=== PATIENT | female | born 1990 | race Caucasian/White ===

== ENCOUNTER 2018-02-10 17:31 | Observation (INO) | payer OTHER ==
[2018-02-10] MEDS ORDERED: OXYTOCIN 10 UNIT/ML ML IV ONE (17:49)
[2018-02-10] MEDS ORDERED: Ringers Lactate 1,000 ML IV ONE ×2 (17:49→17:55)
[2018-02-10] MEDS ORDERED: METHYLERGONOVINE 0.2MG/ML AMP IM ONE (17:51)
--- NOTE | 2018-02-10 18:13 | ER ---
Nurse's Notes [facility] Name: Manisha Bui Age: 27 yrs Sex: Female : 1990 Arrival Date: 02/10/2018 Time: 17:34 Bed 6 Private MD: Diagnosis: Sycnope, Bleeding, Retained Products of Conception Presentation: 02/10 17:36 Presenting complaint: Patient states: I gave at home (full term) today at 1219, la1 was uncomplicated but after it was over I had two near syncopal events. EMS reports pt has + orthostatics and BP was 80/40 on scene. 1L NS given en route. Transition of care: patient was not received from another setting of care. Onset of symptoms was February 10, 2018. Initial Sepsis Screen: Does the patient meet any 2 criteria? No. Patient's initial sepsis screen is negative. Does the patient have a suspected source of infection? No. Patient's initial sepsis screen is negative. Care prior to arrival: IV initiated. 20 GA, in the left antecubital area. 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 - Social history:: Smoking status: Patient/guardian denies using tobacco. Screenin:38 Abuse screen: Denies threats or abuse. Nutritional screening: No deficits noted. la1 Tuberculosis screening: No symptoms or risk factors identified. Fall Risk None identified. Assessment: 17:38 General: Appears uncomfortable, Behavior is calm, cooperative. Pain: Complains of pain la1 in pelvis. Neuro: Level of Consciousness is awake, alert, obeys commands, Oriented to person, place, time, situation. Cardiovascular: Heart tones S1 S2 present Capillary refill < 3 seconds Patient's skin is warm and dry. Respiratory: Airway is patent Respiratory effort is even, unlabored, Respiratory pattern is regular, symmetrical, Breath sounds are clear bilaterally. GI: Abdomen is round non-distended, Bowel sounds present X 4 quads. Abd is soft and non tender X 4 quads. : Reports vaginal bleeding that is. Derm: Skin is dry, Skin is pale, Skin temperature is warm. Vital Signs: 17:37 BP 122 / 73; Pulse 88; Resp 19; Temp 98.9(O); Pulse Ox 100% on R/A; la1 18:50 BP 120 / 74; Pulse 86; Resp 19; Pulse Ox 100% on R/A; la1 ED Course: 17:34 Patient arrived in ED. iw 17:35 Jeff Coleman, RN is Primary Nurse. la1 17:37 Triage completed. la1 17:38 Arm band placed on right wrist. la1 17:38 Placed in gown. Bed in low position. Call light in reach. cutter operator helper on. Pulse ox la1 on. NIBP on. 17:38 No provider procedures requiring assistance completed. Inserted saline lock: 20 gauge la1 in right antecubital area, using aseptic technique. Blood collected. 17:43 Ismael Murphy MD is Attending Physician. kdr 18:12 Gurvinder Kramer MD is Hospitalizing Provider. kdr 18:50 Patient admitted, IV remains in place. la1 Administered Medications: 17:50 Drug: Pitocin 20 units Route: IV; Rate: calculated rate; Site: left wrist; ae1 18:49 Follow up: IV Status: Infusion continued upon admission la1 17:51 Drug: METHERgine 0.2 mg {Note: Administred by Shivani Aguilar RN.} Route: IM; Site: right ae1 vastus lateralis; 18:49 Follow up: Response: No adverse reaction la1 18:03 Drug: Ringers - Lactated Ringers Solution 1000 ml Route: IV; Rate: bolus; Site: right la1 antecubital; 18:49 Follow up: IV Status: Infusion continued upon admission la1 Outcome: 18:13 Decision to Hospitalize by Provider. kdr 18:49 Admitted to L \T\ D, accompanied by nurse, via stretcher, room 277, with chart. la1 18:49 Condition: stable 18:49 Instructed on the need for admit. 18:50 Patient left the ED. la1 Signatures: Ismael Murphy MD MD kdr Carli Bailon RN RN iw Jeff Coleman RN RN la1 Ovidio, Oni, RN RN ae1
--- NOTE | 2018-02-10 18:13 | EDPHYS ---
Physician Documentation [facility] Name: Manisha Bui Age: 27 yrs Sex: Female : 1990 Arrival Date: 02/10/2018 Time: 17:34 Bed 6 Private MD: ED Physician Ismael Murphy HPI: 02/10 17:55 This 27 yrs old Female presents to ER via EMS with complaints of vaginal kdr bleeding and syncope . 17:55 The patient presents with vaginal bleeding that is Syncope x 2. Onset: The kdr symptoms/episode began/occurred just prior to arrival. Modifying factors: The symptoms are alleviated by laying down, the symptoms are aggravated by Standing up. Associated signs and symptoms: Pertinent positives: syncope When the patient stands up, she become hypotensive and passes out. Severity of symptoms: At their worst the symptoms were moderate, in the emergency department the symptoms are unchanged. The patient has not experienced similar symptoms in the past. The patient has not recently seen a physician, The patient initially saw Dr. Goldsmith but then completed her and delivery with a pin sorter and bagger.. EMS reports that they had been called to the home earlier in the day to evaluate the patient due to being light headed and dizzy. They did not initially transport but when the patient had a second syncopal episode, EMS was called again. 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 - Social history:: Smoking status: Patient/guardian denies using tobacco. ROS: 17:55 Constitutional: Negative for fever, chills, and weight loss, Eyes: Negative for injury, kdr pain, redness, and discharge, Neck: Negative for injury, pain, and swelling, Cardiovascular: Negative for chest pain, palpitations, and edema, Respiratory: Negative for shortness of breath, cough, wheezing, and pleuritic chest pain, Abdomen/GI: Negative for abdominal pain, nausea, vomiting, diarrhea, and constipation, Back: Negative for injury and pain, MS/Extremity: Negative for injury and deformity, Skin: Negative for injury, rash, and discoloration, Psych: Negative for depression, anxiety, suicide ideation, homicidal ideation, and hallucinations, Allergy/Immunology: Negative for hives, rash, and allergies, Endocrine: Negative for neck swelling, polydipsia, polyuria, polyphagia, and marked weight changes, Hematologic/Lymphatic: Negative for swollen nodes, abnormal bleeding, and unusual bruising. 17:55 : Positive for vaginal bleeding, Negative for difficulty urinating, bladder incontinence, vaginal itching, menstrual abnormality. 17:55 Neuro: Positive for dizziness, loss of consciousness, syncope, near syncope, weakness, Negative for altered mental status, headache, seizure activity, speech changes, tremor. Exam: 17:55 Constitutional: This is a well developed, well nourished patient who is awake, alert, kdr and in no acute distress. Head/Face: Normocephalic, atraumatic. Eyes: Pupils equal round and reactive to light, extra-ocular motions intact. Lids and lashes normal. Conjunctiva and sclera are non-icteric and not injected. Cornea within normal limits. Periorbital areas with no swelling, redness, or edema. Neck: Trachea midline, no thyromegaly or masses palpated, and no cervical lymphadenopathy. Supple, full range of motion without nuchal rigidity, or vertebral point tenderness. No Meningismus. Chest/axilla: Normal chest wall appearance and motion. Nontender with no deformity. No lesions are appreciated. Cardiovascular: Regular rate and rhythm with a normal S1 and S2. No gallops, murmurs, or rubs. Normal PMI, no JVD. No pulse deficits. Respiratory: Lungs have equal breath sounds bilaterally, clear to auscultation and percussion. No rales, rhonchi or wheezes noted. No increased work of breathing, no retractions or nasal flaring. Abdomen/GI: Soft, non-tender, with normal bowel sounds. No distension or tympany. No guarding or rebound. No evidence of tenderness throughout. Back: No spinal tenderness. No costovertebral tenderness. Full range of motion. Skin: Warm, dry with normal turgor. Normal color with no rashes, no lesions, and no evidence of cellulitis. MS/ Extremity: Pulses equal, no cyanosis. Neurovascular intact. Full, normal range of motion. Neuro: Awake and alert, GCS 15, oriented to person, place, time, and situation. Cranial nerves II-XII grossly intact. Motor strength 5/5 in all extremities. Sensory grossly intact. Cerebellar exam normal. Normal gait. Psych: Awake, alert, with orientation to person, place and time. Behavior, mood, and affect are within normal limits. 17:55 : Pelvic Exam: The patient presents obviously post from the earlier delivery today. The is a pad in place that had BRB on it and there is mild bleeding. Vital Signs: 17:37 BP 122 / 73; Pulse 88; Resp 19; Temp 98.9(O); Pulse Ox 100% on R/A; la1 18:50 BP 120 / 74; Pulse 86; Resp 19; Pulse Ox 100% on R/A; la1 Procedures: 18:04 Performed speculum exam, 3rd degree perineal tear, labia minora and majora with snw significant edema, fundal massage begun, pt rec'ing 1st L NS per PIV, speculum exam shows moderate amount of bleeding from open cervix with placental retained tissue extruding from cervical os. Gentle traction with ring forceps applied, placental remnant removed, os appears edematous but healthy. Fundus firmed from intial exam. LR with 20 units pitocin up and infusing, methergine 0.2mg IM to right vastus lateralis. Pt states pain is significantly reduced. Ice pack placed to perineal area.. MDM: 18:13 Patient medically screened. kdr 18:18 Data reviewed: vital signs, nurses notes, lab test result(s). Counseling: I had a kdr detailed discussion with the patient and/or guardian regarding: the historical points, exam findings, and any diagnostic results supporting the discharge/admit diagnosis, lab results, radiology results, the need for further work-up and treatment in the hospital. 02/10 17:55 Order name: CBC with Diff kdr 02/10 17:55 Order name: Chem 7 kdr 02/10 17:55 Order name: Type And Screen kdr 02/10 18:10 Order name: US Transvaginal Ob snw Administered Medications: 17:50 Drug: Pitocin 20 units Route: IV; Rate: calculated rate; Site: left wrist; ae1 18:49 Follow up: IV Status: Infusion continued upon admission la1 17:51 Drug: METHERgine 0.2 mg {Note: Administred by Shivani Aguilar RN.} Route: IM; Site: right ae1 vastus lateralis; 18:49 Follow up: Response: No adverse reaction la1 18:03 Drug: Ringers - Lactated Ringers Solution 1000 ml Route: IV; Rate: bolus; Site: right la1 antecubital; 18:49 Follow up: IV Status: Infusion continued upon admission la1 Disposition: 18:11 Co-signature as Attending Physician, Ismael Murphy MD I agree with the assessment and kdr plan of care. Disposition: 02/10/18 18:13 Hospitalization ordered by Gurvinder Kramer for Observation. Preliminary diagnosis is Sycnope, Bleeding, Retained Products of Conception. - [facility]. - Status is Observation. la1 - Condition is Fair. - Problem is new. - Symptoms have improved. UTI on Admission? No Signatures: Dispatcher [employer] EDRI Ismael Murphy MD MD kdr Cece Salazar, WELD INSPECTOR-C WELD INSPECTOR-Csnw Jeff Coleman RN RN la1 Oni Nolan RN RN ae1 Kellen Barrera
[2018-02-10 18:15] LABS: Absolute Lymphocytes (CBC) 1.1 K/uL (0.7-4.9); Absolute Monocytes 0.9 K/uL (0.1-1.3); Absolute Neutrophil 17.6 K/uL (1.8-8.0); Basophils % 0.8 % (0-1.3); Hematocrit 23.9 % (36.0-45.0); Lymphocytes % 5.6 % (15.3-44.8); MCH 31.9 pg (27.0-35.0); MCV 93.4 fL (80-100); Monocytes % 4.5 % (3.3-12.3); RBC Red Blood Cell Count 2.56 M/uL (3.86-4.86)
[2018-02-10] MEDS ORDERED: FENTANYL CITR 100 MCG/2 ML IV PRN (18:16)
[2018-02-10] MEDS ORDERED: ACETAMINOPHEN 500 MG TAB PO PRN (18:16)
[2018-02-10] MEDS ORDERED: ONDANSETRON 4 MG/2 ML VIAL IV PRN (18:16)
[2018-02-10 18:22] LABS: BUN Blood Urea Nitrogen 8 mg/dL (6-20); Glucose Level 119 mg/dL (65-120)
[2018-02-10 18:28] LABS: Bicarbonate 18 mEq/L (21-31); Potassium 3.3 mEq/L (3.6-5.0); Sodium Level 120 mEq/L (135-145)
[2018-02-10] MEDS ORDERED: LIDOCAINE 1% 20 ML MDV ONE (18:45)
[2018-02-10] MEDS ORDERED: BUTORPHANOL 1 MG/ML INJ ONE (18:45)
[2018-02-10] MEDS ORDERED: PROMETHAZINE 25 MG/ML VIAL ONE (18:50)
[2018-02-10 18:54] VITALS: O2SAT 100
[2018-02-10] MEDS ORDERED: NA CHLORIDE 0.9% 1,000 ML ONE (18:58)
[2018-02-10] MEDS ORDERED: D5 0.45 NS 1,000 ML IV SCH (19:00)
[2018-02-10] MEDS ORDERED: CEFAZOLIN/NS 1gm 1 GM/50 ML BAG IVPB ONE (19:02)
[2018-02-10] MEDS ORDERED: CEFAZOLIN SODIUM 1 GM/VIAL ONE (19:03)
[2018-02-10] MEDS ORDERED: CEFAZOLIN/SWI 1gm 1 GM/10 ML SYR ONE (19:04)
[2018-02-10] MEDS ORDERED: CARBOPROST TROME 250 MCG/ML IM PRN (19:40)
[2018-02-10] MEDS ORDERED: ONDANSETRON 4 MG (ODT) TAB PO PRN (19:40)
[2018-02-10] MEDS ORDERED: METHYLERGONOVINE 0.2MG/ML AMP IM PRN (19:40)
[2018-02-10] MEDS ORDERED: METHYLERGONOVINE 0.2 MG TAB PO PRN (19:40)
[2018-02-10] MEDS ORDERED: Oxycodone HCl/Acetaminophen 1 TAB TAB PO PRN (19:40)
[2018-02-10] MEDS ORDERED: IBUPROFEN 200 MG TAB PO PRN (19:40)
--- NOTE | 2018-02-10 19:43 | P.BOP ---
Preoperative diagnosis: Perineal lacerations Postoperative diagnosis: same Primary procedure: Repair of lacerations, Right periurethral, posterior vaginal Estimated blood loss: Less than 10ml during repair Anesthesia: Local Complications: None Drain(s): Urinary catheter Transferred to: Other (277) Condition: Fair
[2018-02-10] MEDS ORDERED: OXYTOCIN/LR 20 UNITS/1,000 ML BAG IV SCH (20:00)
[2018-02-10 20:36] LABS: Blood Morphology Comment NOT SEEN (NOT SEEN); Platelet Estimate ADEQ; Toxic Granulation 1+
[2018-02-10] MEDS ORDERED: BUTORPHANOL 1 MG/ML INJ IV ONE (20:50)
[2018-02-10] MEDS ORDERED: PROMETHAZINE 25 MG/ML VIAL IV ONE (20:50)
[2018-02-10 20:51] VITALS: BMI 29.0
--- NOTE | 2018-02-11 00:49 | PREOPHP ---
Date of Admission: 02/10/2018 Preoperative Diagnoses: Perineal laceration, severe anemia. Procedure Performed: Repair of lacerations. Postoperative Diagnoses: Perineal laceration, severe anemia. Description Of Procedure: The patient was prepped and draped in the usual fashion as if had just del ivered vaginally in our labor and delivery unit after given 1 mg Stadol, 12.5 mg of Phenergan IV, and local infiltration. Right periurethral laceration was repaired with simple sutures of 3-0 Vicryl. The posterior vaginal laceration and perineal laceration were repaired as if repairing the usual epis iotomy with 3-0 Vicryl suture. Large flap of hymenal ring posteriorly was excised to effect more imp roved repair. The patient tolerated procedures adequately. Estimated total blood loss at the time o f procedure was only 10 cc. Goldberg catheter was placed at the end of the procedure with close to a li ter of urine being expelled because of extremely poor visualization with it at the same time. Little bleeding was noted from the cervical os. We will defer curettage of the endometrium to a later poin t to be done under general anesthesia in the OR if bleeding is a problem. TAMIKO/ISAAC Voice ID: [id number]
--- NOTE | 2018-02-11 00:49 | PREOPHP ---
Date of Admission: 02/10/2018 History Of Present Illness: Ms. Bui is 27-year-old female, now 3, para 1-0-2-1, who is status post vaginal delivery outside the hospital with a security technician approximately 12 p.m. today. She was brought to the hospital after a couple of syncopal episodes and noted to be severely anemic with low blood pressure. The security technician reports spontaneous controlled vaginal delivery with no unusua l bleeding afterwards. Past Medical History: Includes prior ectopic with exploratory laparotomy, right salpingect jorge, and prior spontaneous AB. She has no other significant hospitalizations, accidents, illnesses, injuries, or surgeries. Medications: She is on no medications other than vitamins. Allergies: SHE HAS NO KNOWN ALLERGIES. Social History: She does not smoke. Family History: Noncontributory. Review of Systems: She reports no recent cough, cold, fever, or chills. No recent nausea or vomiting. She denies any b reast lumps. She denies any urine symptoms or bowel problems. Physical Examination: General: Reveals extremely pale female. Neck: Supple without adenopathy or thyromegaly. Lungs: Clear. Cardiac: Regular rate and rhythm, without murmurs. Pulse rate approximately 88. Lungs: Clear. Abdomen: Nontender. Uterus is almost at the umbilicus. Pelvic: She has a second-degree perineal laceration that extends care home up the vagina. A large rig ht periurethral laceration. There was not a great deal of active bleeding at this point. Impression: 1.Status post vaginal delivery with perineal lacerations. 2.Syncope, probably secondary to acute blood loss. Plan: The patient will be admitted for 23-hour stay, repair of lacerations, and possible blood trans fusion. MPG/MODL Voice ID: [id number]
[2018-02-11 04:15] LABS: Hematocrit 27.7 % (36.0-45.0)
[2018-02-11 08:01] LABS: Absolute Lymphocytes (CBC) 1.8 K/uL (0.7-4.9); Absolute Monocytes 0.7 K/uL (0.1-1.3); Absolute Neutrophil 10.8 K/uL (1.8-8.0); Basophils % 0.4 % (0-1.3); Eosinophils % 0.2 % (0-4.4); Lymphocytes % 13.8 % (15.3-44.8); MCH 30.7 pg (27.0-35.0); MCV 91.6 fL (80-100); MPV 9.5 fL (7.6-11.3); Monocytes % 5.2 % (3.3-12.3); RBC Red Blood Cell Count 3.07 M/uL (3.86-4.86)
--- NOTE | 2018-02-11 08:02 | P.PN ---
Date of Service: 02/11/18 S-No real complaints except soreness O-07/13 post transfusion h/h, abdomen non-tender, uterus well contracted A-Improved P-D?C Goldberg, ambulate, check cbc wbc's, probably home at noon if doing well.
[2018-02-11 12:46] VITALS: BP 140/80; TEMP 97.2
== END 2018-02-11 13:00 | disposition home or self-care (01) ==
LOC: ER 17:31 → ERHOLD 18:14 → 2ND-WC 18:27
PROVIDERS: ADMIT Specialist; ATTEND Specialist
PROC: 30233N1 Transfusion of Nonautologous Red Blood Cells into Peripheral Vein, Percutaneous Approach (ICD-10-PCS; principal; 2018-02-10)
PROC: 0KQM0ZZ Repair Perineum Muscle, Open Approach (ICD-10-PCS; 2018-02-10)
DX: O90.81 Anemia of the puerperium (principal); D62 Acute posthemorrhagic anemia; O71.82 Other specified trauma to perineum and vulva; O70.0 First degree perineal laceration during delivery; Z3A.00 Weeks of gestation of pregnancy not specified; Z37.0 Single live birth
CPT/HCPCS: 36415; 80048; 85025; 86850; 86900; 86901; 96372; 99285; G0378; J0595; J0690; J2210; J2550; J2590; J7030; P9016

== ENCOUNTER 2019-10-18 21:25 | Emergency (ER) | payer OTHER ==
[2019-10-18] MEDS ORDERED: CEFTRIAXONE/SWI 1gm 1 GM/10 ML SYR ONE (22:27)
[2019-10-18] MEDS ORDERED: NA CHLORIDE 0.9% 1,000 ML ONE (22:27)
[2019-10-18 22:31] LABS: Urine Blood 3+ (NEG); Urine Glucose NEGATIVE (NEG); Urine Protein NEGATIVE (NEG)
[2019-10-18 23:04] LABS: Absolute Lymphocytes (CBC) 1.3 K/uL (0.7-4.9); Basophils % 0.3 % (0-1.3); Hematocrit 36.1 % (36.0-45.0); Lymphocytes % 13.3 % (15.3-44.8); MPV 8.4 fL (7.6-11.3)
[2019-10-18 23:14] LABS: ALT/SGPT 25 U/L (12-78); AST/SGOT 18 U/L (15-37); Albumin 3.8 g/dL (3.4-5.0); Alkaline Phosphatase 59 U/L (45-117); BUN Blood Urea Nitrogen 10 mg/dL (7-18); Bicarbonate 26 mmol/L (21-32); Bilirubin Total 0.2 mg/dL (0.2-1.0); Glucose Level 92 mg/dL (74-106); Potassium 3.6 mmol/L (3.5-5.1); Protein, Total 8.3 g/dL (6.4-8.2); Sodium Level 141 mmol/L (136-145)
--- NOTE | 2019-10-19 01:06 | ER ---
Nurse's Notes [facility] Name: Manisha Bui Age: 29 yrs Sex: Female : 1990 Arrival Date: 10/18/2019 Time: 21:26 Bed 7 Private MD: Diagnosis: Abnormal uterine and vaginal bleeding, unspecified;Urinary tract infection, site not specified Presentation: 10/18 22:00 Presenting complaint: Patient states: "I think I might have a ectopic . I am jd3 having similar symptoms as the last one I had 3 months ago with bleeding and cramping.". Transition of care: patient was not received from another setting of care. Onset of symptoms was October 18, 2019. Risk Assessment: Do you want to hurt yourself or someone else?. Initial Sepsis Screen: Does the patient meet any 2 criteria? No. Patient's initial sepsis screen is negative. Does the patient have a suspected source of infection? No. Patient's initial sepsis screen is negative. Note Tylenol at 1700. Care prior to arrival: None. 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 - Social history:: Smoking status: Patient/guardian denies using tobacco. - Ebola Screening: : Patient negative for fever greater than or equal to 101.5 degrees Fahrenheit, and additional compatible Ebola Virus Disease symptoms. - Family history:: not pertinent. Screenin:30 Abuse screen: Denies threats or abuse. Denies injuries from another. Nutritional aa1 screening: No deficits noted. Tuberculosis screening: No symptoms or risk factors identified. Fall Risk None identified. Assessment: 22:30 General: Appears in no apparent distress. comfortable, Behavior is calm, cooperative, aa1 appropriate for age. Pain: Complains of pain in suprapubic area Quality of pain is described as crampy, Pain began 1 day ago. Neuro: Level of Consciousness is awake, alert, obeys commands, Oriented to person, place, time, situation, Moves all extremities. Full function Gait is steady. Respiratory: Airway is patent Respiratory effort is even, unlabored, Respiratory pattern is regular, symmetrical. GI: No signs and/or symptoms were reported involving the gastrointestinal system. : Urine is clear, Reports cramping, vaginal bleeding that is light flow. EENT: No signs and/or symptoms were reported regarding the EENT system. Derm: Skin is intact, is healthy with good turgor, Skin is pink, warm \\T\\ dry. Musculoskeletal: Circulation, motion, and sensation intact. Capillary refill < 3 seconds. 23:37 Reassessment: Patient appears in no apparent distress at this time. Patient and/or aa1 family updated on plan of care and expected duration. Pain level reassessed. Patient is alert, oriented x 3, equal unlabored respirations, skin warm/dry/pink. Awaiting provider reassessment. 10/19 00:35 Reassessment: Patient appears in no apparent distress at this time. Patient and/or aa1 family updated on plan of care and expected duration. Pain level reassessed. Patient is alert, oriented x 3, equal unlabored respirations, skin warm/dry/pink. Awaiting provider reassessment. 01:03 Reassessment: Patient appears in no apparent distress at this time. Patient is alert, aa1 oriented x 3, equal unlabored respirations, skin warm/dry/pink. Discussed d/c \\T\\ f/u instructions with pt; denies questions or concerns at this time. Ambulatory to lobby with steady gait. Vital Signs: 10/18 22:03 BP 123 / 76; Pulse 86; Resp 17 S; Temp 99.3(O); Pulse Ox 100% on R/A; Weight 63.05 kg jd3 (R); Height 5 ft. 3 in. (160.02 cm) (R); Pain 12/24; 23:37 BP 110 / 72; Pulse 77; Resp 16; Pulse Ox 100% on R/A; aa1 10/19 00:35 BP 105 / 68; Pulse 86; Resp 16; Pulse Ox 100% on R/A; Pain 0/10; aa1 10/18 22:03 Body Mass Index 24.62 (63.05 kg, 160.02 cm) jd3 ED Course: 10/18 21:26 Patient arrived in ED. cl3 22:01 Triage completed. jd3 22:05 Arm band placed on. jd3 22:09 Chirag Soto MD is Attending Physician. arjun 22:21 Yee Rojas RN is Primary Nurse. aa1 22:25 Urine collected: clean catch specimen. aa1 22:30 Patient has correct armband on for positive identification. Placed in gown. Bed in low aa1 position. Call light in reach. Pulse ox on. NIBP on. Warm blanket given. 22:35 Initial lab(s) drawn, by me, sent to lab. Inserted saline lock: 20 gauge in right aa1 forearm, using aseptic technique. Blood collected. 10/19 00:49 Gurvinder Kramer MD is Referral Physician. arjun 01:03 No provider procedures requiring assistance completed. IV discontinued, intact, aa1 bleeding controlled, No redness/swelling at site. Pressure dressing applied. Administered Medications: 10/18 22:39 Drug: NS 0.9% 1000 ml Route: IV; Rate: 1 bolus; Site: right forearm; aa1 23:15 Follow up: IV Status: Completed infusion; IV Intake: 1000ml aa1 22:39 Drug: Rocephin 1 grams Route: IV; Rate: per protocol; Site: right forearm; aa1 22:44 Follow up: IV Status: Completed infusion; IV Intake: 10ml aa1 Intake: 22:44 IV: 10ml; Total: 10ml. aa1 23:15 IV: 1000ml; Total: 1010ml. aa1 Outcome: 10/19 00:49 Discharge ordered by . arjun 01:03 Discharged to home ambulatory, with significant other. aa1 01:03 Condition: good 01:03 Discharge instructions given to patient, significant other, Instructed on discharge instructions, follow up and referral plans. medication usage, Demonstrated understanding of instructions, follow-up care, medications, Prescriptions given X 2. 01:03 Patient left the ED. aa1 Signatures: Yee Rojas RN RN aa1 Charles, Chirag, MD MD arjun Franco, Matty, RN RN jd3 Erick, Charde cl3
--- NOTE | 2019-10-19 01:10 | EDPHYS ---
Physician Documentation [facility] Name: Manisha Bui Age: 29 yrs Sex: Female : 1990 Arrival Date: 10/18/2019 Time: 21:26 Bed 7 Private MD: LUCIE Physician Chirag Soto HPI: 10/18 22:24 This 29 yrs old Female presents to ER via Ambulatory with complaints of arjun Vaginal Bleeding. 22:24 The patient presents with pelvic pain, vaginal bleeding that is. Onset: The arujn symptoms/episode began/occurred 2 day(s) ago. Modifying factors: The symptoms are alleviated by nothing, the symptoms are aggravated by nothing. Severity of symptoms: At their worst the symptoms were mild, in the emergency department the symptoms are unchanged. The patient is sexually active. [employer]ATORY HEL[employer]: 22:03 LMP N/A - Irregular menses jd3 22:24 3, Full Term 1, Premature 0, 2, Living 1 arjun Historical: - Allergies: 22:02 No Known Allergies; jd3 - Home Meds: 22:02 levothyroxine 50 mcg oral tab 1 tab once daily [Active]; jd3 - PMHx: 22:02 Thyroid problem; jd3 - PSHx: 22:02 ectopic preg sx; right felopien tube; jd3 - Immunization history:: Adult Immunizations not up to date. - Social history:: Smoking status: Patient/guardian denies using tobacco. - Ebola Screening: : Patient negative for fever greater than or equal to 101.5 degrees Fahrenheit, and additional compatible Ebola Virus Disease symptoms. - Family history:: not pertinent. ROS: 22:24 Constitutional: Negative for fever, chills, and weight loss, Eyes: Negative for injury, arjun pain, redness, and discharge, ENT: Negative for injury, pain, and discharge, Neck: Negative for injury, pain, and swelling, Cardiovascular: Negative for chest pain, palpitations, and edema, Respiratory: Negative for shortness of breath, cough, wheezing, and pleuritic chest pain, Abdomen/GI: Negative for abdominal pain, nausea, vomiting, diarrhea, and constipation, Back: Negative for injury and pain, MS/Extremity: Negative for injury and deformity, Skin: Negative for injury, rash, and discoloration, Neuro: Negative for headache, weakness, numbness, tingling, and seizure, Psych: Negative for depression, anxiety, suicide ideation, homicidal ideation, and hallucinations, Allergy/Immunology: Negative for hives, rash, and allergies, Endocrine: Negative for neck swelling, polydipsia, polyuria, polyphagia, and marked weight changes, Hematologic/Lymphatic: Negative for swollen nodes, abnormal bleeding, and unusual bruising. 22:24 : Positive for pelvic pain, vaginal bleeding. Exam: 22:24 Constitutional: This is a well developed, well nourished patient who is awake, alert, arjun and in no acute distress. Head/Face: Normocephalic, atraumatic. Eyes: Pupils equal round and reactive to light, extra-ocular motions intact. Lids and lashes normal. Conjunctiva and sclera are non-icteric and not injected. Cornea within normal limits. Periorbital areas with no swelling, redness, or edema. ENT: Nares patent. No nasal discharge, no septal abnormalities noted. Tympanic membranes are normal and external auditory canals are clear. Oropharynx with no redness, swelling, or masses, exudates, or evidence of obstruction, uvula midline. Mucous membranes moist. Neck: Trachea midline, no thyromegaly or masses palpated, and no cervical lymphadenopathy. Supple, full range of motion without nuchal rigidity, or vertebral point tenderness. No Meningismus. Chest/axilla: Normal chest wall appearance and motion. Nontender with no deformity. No lesions are appreciated. Cardiovascular: Regular rate and rhythm with a normal S1 and S2. No gallops, murmurs, or rubs. Normal PMI, no JVD. No pulse deficits. Respiratory: Lungs have equal breath sounds bilaterally, clear to auscultation and percussion. No rales, rhonchi or wheezes noted. No increased work of breathing, no retractions or nasal flaring. Abdomen/GI: Soft, non-tender, with normal bowel sounds. No distension or tympany. No guarding or rebound. No evidence of tenderness throughout. Back: No spinal tenderness. No costovertebral tenderness. Full range of motion. Skin: Warm, dry with normal turgor. Normal color with no rashes, no lesions, and no evidence of cellulitis. MS/ Extremity: Pulses equal, no cyanosis. Neurovascular intact. Full, normal range of motion. Neuro: Awake and alert, GCS 15, oriented to person, place, time, and situation. Cranial nerves II-XII grossly intact. Motor strength 5/5 in all extremities. Sensory grossly intact. Cerebellar exam normal. Normal gait. Psych: Awake, alert, with orientation to person, place and time. Behavior, mood, and affect are within normal limits. Vital Signs: 22:03 BP 123 / 76; Pulse 86; Resp 17 S; Temp 99.3(O); Pulse Ox 100% on R/A; Weight 63.05 kg jd3 (R); Height 5 ft. 3 in. (160.02 cm) (R); Pain 3/10; 23:37 BP 110 / 72; Pulse 77; Resp 16; Pulse Ox 100% on R/A; aa 10/19 00:35 BP 105 / 68; Pulse 86; Resp 16; Pulse Ox 100% on R/A; Pain 0/10; [facility] 10/18 22:03 Body Mass Index 24.62 (63.05 kg, 160.02 cm) jd3 MDM: 10/18 22:09 Patient medically screened. [facility] 22:27 Data reviewed: vital signs, nurses notes, lab test result(s). [facility] 10/18 22:20 Order name: Urine Dipstick--Ancillary (enter results); Complete Time: 23:06 [facility] 10/18 22:20 Order name: Urine --Ancillary (enter results); Complete Time: 23:06 [facility] 10/18 22:22 Order name: CBC with Diff; Complete Time: 00:49 [facility] 10/18 22:22 Order name: Comprehensive Metabolic Panel; Complete Time: 00:49 [facility] 10/18 22:22 Order name: Urine Culture [facility] 10/18 22:22 Order name: Test, Serum; Complete Time: 00:49 [facility] 10/18 22:22 Order name: Urine Dipstick-Ancillary (obtain specimen); Complete Time: 22:22 [facility] 10/18 22:22 Order name: Urine Test (obtain specimen); Complete Time: 22:22 [facility] Administered Medications: 22:39 Drug: NS 0.9% 1000 ml Route: IV; Rate: 1 bolus; Site: right forearm; aa 23:15 Follow up: IV Status: Completed infusion; IV Intake: 1000ml [facility] 22:39 Drug: Rocephin 1 grams Route: IV; Rate: per protocol; Site: right forearm; aa1 22:44 Follow up: IV Status: Completed infusion; IV Intake: 10ml aa1 Disposition: 10/19/19 00:49 Discharged to Home. Impression: Abnormal uterine and vaginal bleeding, unspecified, Urinary tract infection, site not specified. - Condition is Stable. - Discharge Instructions: Dysuria, Urinary Tract Infection, Adult, Urinary Tract Infection, Adult, [id number]. - Prescriptions for Vitamin 27- 0.8 mg Oral Tablet - take 1 tablet by ORAL route once daily; 30 tablet. Macrobid 100 mg Oral Capsule - take 1 capsule by ORAL route every 12 hours for 7 days; 14 capsule. - Medication Reconciliation Form, Thank You Letter, Antibiotic Education, Prescription Opioid Use form. - Follow up: Private Physician; When: 2 - 3 days; Reason: Recheck today's complaints, Continuance of care, Re-evaluation by your physician. Follow up: Gurvinder Kramer; When: 2 - 3 days; Reason: Recheck today's complaints, Re-evaluation by your physician. - Problem is new. - Symptoms have improved. Signatures: Dispatcher [employer] EDMS Yee Rojas RN RN aa1 Chirag Soto MD MD cha Davies, Jonathon, RN RN jd3 Corrections: (The following items were deleted from the chart) 10/19 01:03 00:49 10/19/2019 00:49 Discharged to Home. Impression: Abnormal uterine and vaginal aa1 bleeding, unspecified; Urinary tract infection, site not specified. Condition is Stable. Discharge Instructions: Dysuria, Urinary Tract Infection, Adult, Urinary Tract Infection, Adult, [id number]. Prescriptions for Vitamin 27-0.8 mg Oral Tablet - take 1 tablet by ORAL route once daily; 30 tablet, Macrobid 100 mg Oral Capsule - take 1 capsule by ORAL route every 12 hours for 7 days; 14 capsule. and Forms are Medication Reconciliation Form, Thank You Letter, Antibiotic Education, Prescription Opioid Use. Follow up: Private Physician; When: 2 - 3 days; Reason: Recheck today's complaints, Continuance of care, Re-evaluation by your physician. Follow up: Gurvinder Kramer; When: 2 - 3 days; Reason: Recheck today's complaints, Re-evaluation by your physician. Problem is new. Symptoms have improved. arjun
[2019-10-19 01:22] VITALS: TEMP 99.3; O2SAT 100
[2019-10-19 01:24] VITALS: BP 105/68
== END 2019-10-19 01:03 | disposition home or self-care (01) ==
LOC: ER 21:25
DX: N39.0 Urinary tract infection, site not specified (principal); E07.9 Disorder of thyroid, unspecified
CPT/HCPCS: 96361; 87088; 85025; 87086; 36415; 84703; 81025; 81003; 80053; 96374; 99284; J0696; J7030